=== PATIENT | female | born 1960 | race Caucasian/White ===

== ENCOUNTER 2022-04-29 20:50 | Emergency (ER) | payer OTHER ==
[2022-04-29 21:09] LABS: BASOPHIL 0.4 % (0-2); EOSINOPHIL 14.8 % (0-5); HGB 11.6 g/dl (12.5-16.0); LYMPHOCYTE 9.6 % (15-48); MCH 32.8 pg (25.0-31.0); MCHC 35.2 g/dL (32.0-36.0); MCV 93.2 fL (78.0-100.0); MONOCYTE 7.7 % (0-12); NEUTROPHIL 67.2 % (41-80); NRBC 0; PLT 248 K/uL (150-400); RBC 3.54 M/uL (4.20-5.40); RDW 12.6 % (11.5-14.0); WBC 14.2 K/uL (4.0-10.5)
[2022-04-29 21:35] LABS: ALBUMIN 3.4 g/dL (3.4-5.0); BILIRUBIN - TOTAL 0.6 mg/dL (0.2-1.0); BUN/CREAT RATIO (CALC) 9.8 RATIO; CREATININE 0.61 mg/dL (0.51-0.95); GLOBULIN (CALCULATION) 4.1 g/dL; TOTAL PROTEIN 7.5 g/dL (6.4-8.2)
[2022-04-29] MEDS ORDERED: VIBRAMYCIN100 MG PO (23:32)
== END 2022-04-30 00:25 | disposition home or self-care (01) ==
LOC: FER 20:50
PROVIDERS: Emergency Medicine
DX: C34.90 Malignant neoplasm of unspecified part of unspecified bronchus or lung (principal); C79.9 Secondary malignant neoplasm of unspecified site; R51.9 Headache, unspecified; F17.200 Nicotine dependence, unspecified, uncomplicated; J44.9 Chronic obstructive pulmonary disease, unspecified; Z88.2 Allergy status to sulfonamides
CPT/HCPCS: 36415; 70450; 71275; 80053; 84484; 85025; 94640; J2270; J2930; J3475; J7030